=== PATIENT | male | born 1980 | race African-American/Black ===

== ENCOUNTER 2016-12-06 20:38 | Emergency (ER) | payer OTHER ==
[2016-12-06 22:04] LABS: Bilirubin Negative (Negative); Blood, Urine Trace (Negative); Glucose, Urine (Dipstick) Negative (Negative); Ketone, Urine Negative (Negative); Nitrite Negative (Negative); Protein, Urine (Dipstick) Negative (Neg-Trace)
[2016-12-06 22:28] LABS: RBC/HPF None Seen HPF (0-3); Squamous Epithelial 0-3 HPF (0-3); WBC/HPF 0-3 HPF (0-3)
[2016-12-06 22:41] LABS: Hematocrit 35.8 % (42.0-52.0); Lactic Acid - Sepsis 1.4 mmol/L (0.5-2.2); Mean Platelet Volume 7.7 fL (7.4-10.4); Red Blood Cell (RBC) Count 3.38 mill/uL (4.70-6.10); White Blood Cell (WBC) Count 12.5 thou/uL (4.8-10.8)
[2016-12-06 22:48] LABS: ALT (SGPT) 61 U/L (0-55); AST (SGOT) 51 U/L (5-34); Alkaline Phosphatase 60 U/L (40-150); Anion Gap 14 mmol/L (10-20); BUN (Urea Nitrogen) 9 mg/dL (8.9-20.6); Bilirubin, Total 2.4 mg/dL (0.2-1.2); Calc. Creatinine Clearance 0 mL/min (70-130); Calcium 9.9 mg/dL (7.8-10.44); Carbon Dioxide 27 mmol/L (22-29); Chloride 102 mmol/L (98-107); Estimated GFR-MDRD Greater than 90; Globulin 3.3 g/dL (2.4-3.5); Lipase 29 U/L (8-78)
[2016-12-06 22:51] LABS: Troponin I 0.017 ng/mL (< 0.028)
[2016-12-06 23:06] LABS: Anisocytosis SLIGHT = 6-15 cells (100X) (0-5/hpf); Hypochromia SLIGHT = 6-15 cells (100X) (0-5/hpf); Macrocytosis MODERATE=16-30 cells (100X) (0-5/hpf); Neutrophil 44 % (42-75); Nucleated RBC 2 % (0); Polychromasia SLIGHT = 2-3 cells (100X) (0-2/hpf)
--- NOTE | 2016-12-06 23:31 | RAD ---
CHEST TWO VIEWS 12/06/16 No prior films were available for comparison. The heart is normal in size and the lungs are clear. No infiltrate or effusion was seen. There is no sign of pneumonia. The mediastinum was unremarkable. The trachea is midline. IMPRESSION: No acute thoracic findings. POS: HOME
--- NOTE | 2016-12-06 23:39 | ERRECORD ---
[facility] EMERGENCY RECORD HPI COUGH (21:18 DHAM) CHIEF COMPLAINT: Patient presents for evaluation of cough, productive of yellow sputum. HISTORIAN: History provided by patient, History provided by patient's family, Mother, pt with post nasal drip and cough for 48 hours. Has had 2 episodes of cough induced emesis. no fever or body aches. Had a slight headache between 3 and 4 pm but it resolved. LOCATION: Unable to localize symptoms. QUALITY: Unable to describe the quality of the pain. SEVERITY: Current severity of pain rated as 0/10. TIME COURSE: Gradual onset of symptoms, 2, days priror to arrival, There has been no change in the patient's symptoms over time. ASSOCIATED WITH: No associated chest pain, No associated chills, No associated diarrhea, No associated diaphoresis, No associated dyspnea on exertion, No associated fever, No associated hyperventilation, No associated nausea, No associated orthopnea, No associated palpitations, No associated paroxysmal nocturnal dyspnea, No associated stridor, Associated with upper respiratory infection, No associated wheezing, post nasal drip and lots of sniffing. EXACERBATED BY: Patient's condition exacerbated by nothing. RELIEVED BY: Patient's condition relieved by nothing. IMMUNIZATION STATUS: Flu vaccine up to date, Date of immunization: june 2016. ROS (21:25 DHAM) CONSTITUTIONAL: Historian denies chills, denies fever, denies lethargy, denies night sweats. EYES: Historian denies eye pain, denies eye redness, denies eye discharge. ENT: Historian reports rhinorrhea, post nasal drip. CARDIOVASCULAR: Historian denies chest pain, no radiation, Historian denies diaphoresis, denies palpitations. RESPIRATORY: Historian reports cough, denies shortness of breath, reports sputum. yellow, Historian denies stridor, denies wheezing. GI: Historian denies abdominal pain, denies constipation, denies diarrhea, denies nausea, reports vomiting. vomiting was cough induced. GENITOURINARY MALE: Historian denies dysuria, denies urinary frequency, denies urinary urgency. MUSCULOSKELETAL: Historian denies arthralgias, denies back pain, denies fall, denies injury, denies myalgias. SKIN: Historian denies rash. NEUROLOGIC: Historian denies confusion, denies dizziness, reports headache. ENDOCRINE: Historian denies polydipsia, denies polyuria. HEMO/LYMPHATIC: SS disease. ALLERGIC/IMMUNOLOGIC: Historian denies eczema, denies frequent &a-1R&a+25V*p+0X*b6322T*c202B*c15G*c2P*p-0X&a-25V&a+1R Name: Jose Raul Correa : 1980 M35 MedRec: [id number] AcctNum: [id number] Prepared: MonDec 07, 2016 08:57 by Interface Page 1 of 4 pMD [facility] EMERGENCY RECORD infections, denies hives. PAST MEDICAL HISTORY MEDICAL HISTORY: Notes: SICKLE CELL DISEASE, Flu vaccine up to date, Date of immunization: 2015, Tetanus immunization up to date, Date of immunization: < 5 YEARS, Pneumococcal vaccine up to date, Date of immunization: 2015, Past medical history includes cardiac history, MURMUR. (20:53 AADK) MALE SURGICAL HISTORY: LITHOTRIPSY, Surgical history of orthopedic surgery, LEFT KNEE. (20:53 AADK) PSYCHIATRIC HISTORY: No previous psychiatric history. (20:53 AADK) SOCIAL HISTORY: Patient denies alcohol use, Patient denies drug use, Patient has no smoking history, Lives at home, with family. (20:53 AADK) FAMILY HISTORY: Notes: SICKLE CELL TRAIT- MATERNAL. (20:53 AADK) NOTES: I have reviewed the nursing documentation regarding PMHX, social hx, family hx, and surgical history as well as vitals and triage notes and agree. (21:31 DHAM) KNOWN ALLERGIES ORANGES: Reaction: Rash, Severity: Severe, Source: Patient Toradol: Reaction: Rash, Severity: Severe, Source: Patient CURRENT MEDICATIONS Pen-Vee K: TABLET : Strength - 500 mg : ORAL Patient Dose: 500 mg Oral once a day. (20:47 AADK) folic acid: TABLET : Strength - 1 mg : ORAL Patient Dose: Oral once a day.PT UNSURE OF DOSAGE. (20:48 AADK) Hydrea: CAPSULE : Strength - 500 mg : ORAL Patient Dose: 1000 mg Oral once a day. (20:48 AADK) multivitamin: TABLET : ORAL Patient Dose: 1 tab(s) Oral once a day. (20:49 AADK) VITAL SIGNS VITAL SIGNS: BP: 130/81, Pulse: 75, Resp: 20, Temp: 99.3, Pain: 7, O2 sat: 95 on RA, Time: 12/06/2016 20:45. (20:45 AADK) BP: 118/86, Pulse: 77, Resp: 23 (Non-Labored), O2 sat: 98 on Room Air, Time: 12/06/2016 21:15. (21:15 AADK) BP: 118/82, Pulse: 75, Resp: 22 (Non-Labored), O2 sat: 97 on Room Air, Time: 12/06/2016 22:00. (22:00 AADK) Pulse: 74, Resp: 20 (Non-Labored), Pain: 2, O2 sat: 99 on Room Air, Time: 12/06/2016 22:40. (22:40 AADK) BP: 127/80, Pulse: 71, Resp: 17 (Non-Labored), Pain: 2, O2 sat: 100 on &a-1R&a+25V*p+0X*[id number]*c202B*c15G*c2P*p-0X&a-25V&a+1R Name: Jose Raul Correa : 1980 M35 MedRec: [id number] AcctNum: [id number] Prepared: MonDec 07, 2016 08:57 by Interface Page 2 of 4 pMD [facility] EMERGENCY RECORD Room Air, Time: 12/06/2016 23:00. (23:00 AADK) Temp: 98.5, Time: 12/06/2016 23:18. (23:18 AADK) PHYSICAL EXAM (21:30 DHAM) CONSTITUTIONAL: Vital signs reviewed, Patient afebrile, Pulse normal, Blood pressure normal, Respiratory rate normal, Patient appears non toxic, Patient appears pain free, Patient alert and oriented to person, place and time. HEAD: Head exam normal, Head exam included findings of head atraumatic. EYES: Eye exam included findings of eyelids normal to inspection, Pupils equally round and reactive to light, Extraocular muscles intact, Conjunctiva normal. ENT: Ear exam normal, external ear normal, tympanic membranes normal, no drainage, Nose exam normal, no nasal deformity, Pharynx exam normal, Uvula exam normal, Tonsil exam normal, teeth normal, slight nasal congestion and rhinorrhea with occas sniffles. several tonsillar calcifications noted. no sore throat. NECK: Neck exam normal, Neck exam included findings of normal range of motion, Thyroid normal, no jugular venous distention, no cervical adenopathy. RESPIRATORY CHEST: Breath sounds clear, No wheezing, No rales, No rhonchi. CARDIOVASCULAR: Cardiovascular exam included findings of heart rate regular rate and rhythm, Heart sounds normal, Point of maximal impulse normal. ABDOMEN MALE: Abdominal exam included findings of abdomen nontender, Bowel sounds normal, Liver normal, Spleen normal, no distension, no mass, no peritoneal signs. UPPER EXTREMITY: Upper extremity exam normal, Radial pulse normal. LOWER EXTREMITY: Lower extremity exam normal, Lower extremity exam included findings of inspection normal, Range of motion normal. NEURO: Arsh coma scale 15, Neuro exam findings include patient oriented to person, place and time, Speech normal, Gait normal, Cranial nerves intact. SKIN: Skin exam included findings of skin warm, dry, and normal in color, no rash. PSYCHIATRIC: Psychiatric exam included findings of patient oriented to person place and time, Normal affect, Judgment normal, Insight normal. EKG INTERPRETATION (22:09 [facility]) 12 LEAD EKG INTERPRETATION: 12 lead EKG shows normal sinus rhythm, Rate (beats per minute): 69, with no ectopics, No previous EKG available for comparison, Conduction normal, ST segments normal, T waves normal, [place] normal, Other findings include:, left ventricular hypertrophy. RADIOLOGYINTERPRETATION (21:43 D[facility]) &a-1R&a+25V*p+0X*[id number]*c202B*c15G*c2P*p-0X&a-25V&a+1R Name: Jose Raul Correa : 1980 M35 MedRec: [id number] AcctNum: [id number] Prepared: MonDec 07, 2016 08:57 by Interface Page 3 of 4 pMD [facility] EMERGENCY RECORD CHEST: Chest films negative, no infiltrates, no pneumothorax, no hemothorax, no masses, no cardiomegaly, no congestive heart failure, no effusion, no free air. MEDICATION ADMINISTRATION SUMMARY Drug Name: *sodium chloride 0.9 % intravenous, Dose Ordered: 1 L, Route: IV Fluid Infusion, Status: Canceled, Time: 23:00 12/06/2016, *Additional information available in notes, Detailed record available in Medication Service section. DOCTOR NOTES TEXT: mother now says at the time of discharge that he has thrown up 8-10 times since 5 days ago. She tells me that he has short term memory loss and had a stroke in the past. She did not advise me of the history discrepancy earlier in the visit. she tells me that he can't keep anything on his stomach. pt denies nausea. We will start an IV and obtain labs and cardiac eval as I am having trouble getting a firm history. (21:50 DHAM) Labs discussed with mother. I see no signs of dehydration and he finished about 480ml water over the last hour and denies nausea. he is sniffing and spitting his post nasal drip. This appears to be a viral syndrome. see dci. (23:09 DHAM) PROBLEM LIST No recorded problems DIAGNOSIS (23:11 DHAM) FINAL: PRIMARY: viral upper respiratory infection. PRESCRIPTION No recorded prescriptions DISPOSITION PATIENT: Disposition Type: Discharge, Disposition: *Discharge Home. (23:11 DHAM) Patient left the department. (23:21 AADK) Kelly: AADK=ARRON Kendall, Rukhsana INTERIANO=MD January, Matthieu &a-1R&a+25V*p+0X*[id number]*c202B*c15G*c2P*p-0X&a-25V&a+1R Name: Jose Raul Correa : 1980 M35 MedRec: [id number] AcctNum: [id number] Prepared: MonDec 07, 2016 08:57 by Interface Page 4 of 4 pMD MTDD
--- NOTE | 2016-12-06 23:42 | PICIS ---
[facility] EMERGENCY RECORD TRIAGE (MonDec 06, 2016 20:45 AADK) PATIENT: NAME: Jose Raul Correa, AGE: 35, GENDER: male, : Mon1980, TIME OF GREET: MonDec 06, 2016 20:40, PREFERRED LANGUAGE: Palauan, ETHNICITY: Not or , ECODE BILLING MAP: [facility], SSN: [id number], Zip Code: [address], KG WEIGHT: 72.57 (est.), , , PERSON ID: [id number], PCP: DR DEVAN MCKEON. (MonDec 06, 2016 20:45 AADK) PHONE: , PAYMENT: [facility] Medicaid. (20:48) COMPLAINT: N/V, "FUNNY FEELING IN CHEST FOR A FEW DAYS". (MonDec 06, 2016 20:45 AADK) ADMISSION: URGENCY: 3 Urgent, ADMISSION SOURCE: Home, TRANSPORT: CAR, BED: ER -01. (MonDec 06, 2016 20:45 AADK) PAIN: Patient complains of pain described as, burning, on a scale 0-10 patient rates pain as 7, Location MIDDLE OF CHEST X2 DAYS, Pain is constant. (20:53 AADK) SIRS SCORING: Heart Rate 55-109 (0), Temp range 96.8-101.1 (0), respiratory rate 12-24 (0), Mental Status altered: no (0), Total SIRS Score 0, Infection or Suspected Infection: No. (20:50 AADK) TRIAGE SCREENING: Patient denies suicidal ideation, Patient denies presence of domestic violence. (20:53 AADK) PROVIDERS: TRIAGE NURSE: Rukhsana Solano RN. (MonDec 06, 2016 20:45 AADK) KNOWN ALLERGIES ORANGES: Reaction: Rash, Severity: Severe, Source: Patient Toradol: Reaction: Rash, Severity: Severe, Source: Patient CURRENT MEDICATIONS Pen-Vee K: TABLET : Strength - 500 mg : ORAL Patient Dose: 500 mg Oral once a day. (20:47 AADK) folic acid: TABLET : Strength - 1 mg : ORAL Patient Dose: Oral once a day.PT UNSURE OF DOSAGE. (20:48 AADK) Hydrea: CAPSULE : Strength - 500 mg : ORAL Patient Dose: 1000 mg Oral once a day. (20:48 AADK) multivitamin: TABLET : ORAL Patient Dose: 1 tab(s) Oral once a day. (20:49 AADK) VITAL SIGNS VITAL SIGNS: BP: 130/81, Pulse: 75, Resp: 20, Temp: 99.3, Pain: 7, O2 sat: 95 on RA, Time: 12/06/2016 20:45. (20:45 AADK) BP: 118/86, Pulse: 77, Resp: 23 (Non-Labored), O2 sat: 98 on Room Air, Time: 12/06/2016 21:15. (21:15 AADK) BP: 118/82, Pulse: 75, Resp: 22 (Non-Labored), O2 sat: 97 on Room Air, &a-1R&a+25V*p+0X*a8294L*c202B*c15G*c2P*p-0X&a-25V&a+1R Name: Jose Raul Correa : 1980 M35 MedRec: [id number] AcctNum: [id number] Prepared: MonDec 07, 2016 09:03 by Interface Page 1 of 12 pMD [facility] EMERGENCY RECORD Time: 12/06/2016 22:00. (22:00 AADK) Pulse: 74, Resp: 20 (Non-Labored), Pain: 2, O2 sat: 99 on Room Air, Time: 12/06/2016 22:40. (22:40 AADK) BP: 127/80, Pulse: 71, Resp: 17 (Non-Labored), Pain: 2, O2 sat: 100 on Room Air, Time: 12/06/2016 23:00. (23:00 AADK) Temp: 98.5, Time: 12/06/2016 23:18. (23:18 AADK) NURSING ASSESSMENT: RESPIRATORY /CHEST (20:45 AADK) CONSTITUTIONAL: Patient arrives ambulatory, Gait steady, History obtained from patient, Patient appears comfortable, Patient cooperative, Patient alert, Oriented to person, place and time, Skin warm, Skin dry, Skin normal in color, Mucous membranes pink, Mucous membranes moist, Patient is well-groomed, Patient complains of N/V, "FUNNY FEELING IN CHEST FOR A FEW DAYS", PT PRESENTS TO ER WITH C/O N/V AND "FUNNY FEELING IN CHEST FOR A FEW DAYS." HAVING PRODUCTIVE COUGH WITH YELLOW/GREEN SPUTUM. DENIES FEVER, CHILLS, SORE THROAT, RUNNY NOSE OR BODY ACHES. REGARDING "FUNNY FEELING IN CHEST FOR A FEW DAYS" PT STATES HE IS UNABLE TO DESCRIBE IT. WHEN ASKED ABOUT PAIN, PT STATES SOME IN MIDDLE OF CHEST, DESCRIBES "BURNING" AND RATES 7/10, CONSTANT. STATES THIS STARTED PRIOR TO N/V. LUNGS CLEAR EXCEPT DIMINISHED POSTERIOR UPPER LOBES. NO COUGH NOTED AT THIS TIME. RESPIRATORY/CHEST: Lungs auscultated, Breath sounds diminished, to the left upper lobe, to the right upper lobe, POSTERIOR ONLY, Respiratory assessment findings include respiratory effort easy, Respirations regular, Conversing normally, Neck and chest exam findings include trachea midline, Chest expansion equal, Chest movement symmetrical, no signs of distress, no retractions noted, no cyanosis, Associated with cough, productive of, white sputum, YELLOW-GREEN REPORTED BY PT., no associated fever, Notes: A/R PULSE EQUAL AND REGULAR, MURMUR DETECTED. PT DID REPORT HX OF MURMUR. ENT: Nasal assessment findings include nose normal to inspection, Mucous membranes pink, and moist, Able to swallow, Speech normal. SAFETY: Side rails up, Cart/Stretcher in lowest position, Family at bedside, Call light within reach, Hospital ID band on, Patient in view of the nursing station. VITAL SIGNS: BP: 130, / 81, Pulse: 75, Resp: 20, Temp: 99.3, Pain: 7, O2 sat: 95, on: RA, Time: 2049. NURSING PROCEDURE: RESPIRATORY DIRECTOR PATIENT IDENTIFIER: Patient actively involved in identification process, Patient's identity verified by patient stating name, Patient's identity verified by patient stating date. (20:50 AADK) RESPIRATORY DIRECTOR: Cardiac monitoring indicated for "FUNNY FEELING IN CHEST", Patient placed on playground monitor, Heart rate: 70'S, showing normal sinus rhythm, without ectopy, Strip posted on chart, Patient placed on non-invasive blood pressure &a-1R&a+25V*p+0X*f2190Q*c202B*c15G*c2P*p-0X&a-25V&a+1R Name: Jose Raul Correa : 1980 M35 MedRec: [id number] AcctNum: [id number] Prepared: MonDec 07, 2016 09:03 by Interface Page 2 of 12 pMD [facility] EMERGENCY RECORD monitor, with disposable blood pressure cuff applied, Patient placed on continuous pulse oximetry, Adult/pediatric oxisensor applied, Oxygen saturation 95%. (20:50 AADK) FOLLOW-UP: After procedure, alarms set and on, After procedure, patient tolerating monitoring. (21:00 AADK) SAFETY: Side rails up, Cart/Stretcher in lowest position, Family at bedside, Call light within reach, Hospital ID band on, Patient in view of the nursing station. (21:00 AADK) NURSING PROCEDURE: DISCHARGE NOTE (23:18 AADK) DISCHARGE: Patient discharged to home, ambulating without assistance, family driving, accompanied by parent, Summary of Care printed/ provided, Patient requested and was provided an electronic copy of Discharge Instructions, Transition record given to patient, Discharge instructions given to patient, Discharge instructions given to mother, Simple or moderate discharge teaching performed, Above person(s) verbalized understanding of discharge instructions and follow-up care. BELONGINGS: Belongings remain with patient, Valuables remain with patient. VITAL SIGNS: Temp: 98.5, Time: 2317. NURSING PROCEDURE: EKG CHART (21:56 AADK) PATIENT IDENTIFIER: Patient actively involved in identification process, Patient's identity verified by patient stating name, Patient's identity verified by patient stating date. EKG: EKG indicated for "FUNNY FEELING IN CHEST", 12 lead EKG performed on the left chest, done by Shanice SOLANO RN, first EKG. FOLLOW-UP: After procedure, EKG for interpretation given to Dr. NAIDU. NURSING PROCEDURE: INTAKE AND OUTPUT (22:57 AADK) INTAKE AND OUTPUT: Oral intake(ml): 480, Total Intake (ml): 480ml, Total Output (ml): 0ml, Grand Total: Intake is greater than output by 480mls, Notes: VOID X1. NURSING PROCEDURE: IV (22:00 AADK) PATIENT IDENITIFIER: Patient actively involved in identification process, Patient's identity verified by patient stating name, Patient's identity verified by patient stating date. IV SITE 1: IV therapy indicated for hydration, Labs drawn at time of placement, labeled in the presence of the patient and sent to lab, Notes: LABS DRAWN BUT IV SITE BLEW WHEN ATTEMPTED TO FLUSH WITH NS. PT DIFFICULT STICK, HAD TO USE [address] NAIDU OF LABS DRAWN BUT IV BLEW, HE SAID OK TO WAIT ON IVF UNTIL LABS ARE RESULTED. DR NAIDU GAVE PT ICE WATER TO DRINK AT THIS TIME. NURSING PROCEDURE: NURSE NOTES NURSES NOTES: Patient is improving, Patient in no apparent distress, Patient is awaiting results, Notes: PT TOLERATING ICE &a-1R&a+25V*p+0X*b6608Q*c202B*c15G*c2P*p-0X&a-25V&a+1R Name: Jose Raul Correa : 1980 M35 MedRec: [id number] AcctNum: [id number] Prepared: MonDec 07, 2016 09:03 by Interface Page 3 of 12 pMD [facility] EMERGENCY RECORD WATER WITHOUT C/O N/V. PT CONTINUES TO SPIT PHLEGM IN EMESIS BAG. DENIES ANY PAIN TO CHEST, STATES HE JUST HAS A "SLIGHT" PEREZ. (22:40 AADK) Patient is improving, Patient in no apparent distress, Patient is awaiting results, Notes: NOTIFIED DR NAIDU OF BUN/CREAT LEVELS. HE SAID TO HOLD THE IVF. ALSO INFORMED HIM WE ARE STILL WAITING ON THE CARDIAC LABS. (22:56 AADK) NURSING PROCEDURE: PO CHALLENGE PATIENT IDENTIFIER: Patient actively involved in identification process, Patient's identity verified by patient stating name, Patient's identity verified by patient stating date. (22:25 AADK) PO CHALLENGE: Oral fluid challenge indicated for documenting oral intake prior to discharge, Oral challenge performed, patient given water, amount (mL) 480, Notes: GIVEN TO PT BY DR NAIDU. (22:25 AADK) FOLLOW-UP: After procedure, patient tolerated oral challenge, Notes: PT DRANK ALL 480 ML OF ICE WATER WITH C/O OF N/V. (22:58 AADK) NURSING PROCEDURE: TRANSPORT TO [facility] PATIENT IDENTIFIER: Patient actively involved in identification process, Patient's identity verified by patient stating name, Patient's identity verified by patient stating date. (21:33 AADK) TRANSPORT TO TESTS: Transport indicated to facilitate diagnosis, Patient transported to x-ray, via wheelchair, Accompanied by x-ray greenhouse technician. (21:34 AADK) FOLLOW-UP: After procedure, patient returned to emergency department. (21:41 AADK) SAFETY: Side rails up, Cart/Stretcher in lowest position, Family at bedside, Call light within reach, Hospital ID band on, Patient in view of the nursing station. (21:41 AADK) ORDER DETAILS Order Name: RESPIRATORY DIRECTOR ED, Status: Done, Time: 21:50 12/06/2016, User: SARA, - Ordered for: MD Naidu Darren, - Entered by: MD Naidu Darren - Tue Dec 06, 2016 21:48, - Quantity: 1, Order Name: Cardiac Profile w/CKMB & Troponin - I, Status: Active, Time: 21:48 12/06/2016, User: JAYDON, - Ordered for: MD Naidu Darren, - Entered by: MD Naidu Darren - Tue Dec 06, 2016 21:48, - Quantity: 1, Order Name: CBC with Differential, Status: Active, Time: 21:48 12/06/2016, User: JAYDON, - Ordered for: MD Naidu Darren, &a-1R&a+25V*p+0X*u6810N*c202B*c15G*c2P*p-0X&a-25V&a+1R Name: Sunny Jose Raul Ori : 1980 M35 MedRec: [id number] AcctNum: [id number] Prepared: MonDec 07, 2016 09:03 by Interface Page 4 of 12 pMD [facility] EMERGENCY RECORD - Entered by: MD Naidu Darren - Tue Dec 06, 2016 21:48, - Quantity: 1, Order Name: Comprehensive Metabolic Panel, Status: Active, Time: 21:48 12/06/2016, User: JAYDON, - Ordered for: MD Naidu Darren, - Entered by: MD Naidu Darren - Tue Dec 06, 2016 21:48, - Quantity: 1, Order Name: EKG 12 Lead in Emergency Room, Status: Active, Time: 21:48 12/06/2016, User: JAYDON, - Ordered for: MD Naidu Darren, - Entered by: MD Naidu Darren - Tue Dec 06, 2016 21:48, - Quantity: 1, Order Name: Influenza A&B Ag Screen, Status: Active, Time: 21:16 12/06/2016, User: JAYDON, - Ordered for: MD Naidu Darren, - Entered by: MD Naidu Darren - Tue Dec 06, 2016 21:16, - Quantity: 1, Order Name: Lactic Acid with repeat, Status: Active, Time: 21:48 12/06/2016, User: JAYDON, - Ordered for: MD Naidu Darren, - Entered by: MD Naidu Darren - Tue Dec 06, 2016 21:48, - Quantity: 1, Order Name: Lipase, Status: Active, Time: 21:48 12/06/2016, User: JAYDON, - Ordered for: MD Naidu Darren, - Entered by: MD Naidu Darren - Tue Dec 06, 2016 21:48, - Quantity: 1, Order Name: SALINE LOCK, Status: Canceled, Time: 23:09 12/06/2016, User: DEMIK, - Ordered for: MD Naidu Darren, - Entered by: MD Naidu Darren - Tue Dec 06, 2016 21:48, - Reason for Cancel: UNABLE TO OBTAIN IV ACCESS, - Quantity: 1, Order Name: Urinalysis with Microscopic, Status: Active, Time: 21:48 12/06/2016, User: JAYDON, - Ordered for: MD Naidu Darren, - Entered by: MD Naidu Darren - Tue Dec 06, 2016 21:48, - Quantity: 1, Order Name: XR Chest Pa & Lat STANDARD, Status: Active, Time: 21:17 12/06/2016, User: JAYDON, - Ordered for: MD Naidu Darren, - Entered by: MD Naidu Darren - Tue Dec 06, 2016 21:17, - Quantity: 1. MEDICATION ADMINISTRATION SUMMARY Drug Name: *sodium chloride 0.9 % intravenous, Dose Ordered: 1 L, Route: IV Fluid Infusion, Status: Canceled, Time: 23:00 12/06/2016, *Additional information available in notes, Detailed record available in Medication Service section. &a-1R&a+25V*p+0X*u3433H*c202B*c15G*c2P*p-0X&a-25V&a+1R Name: Jose Raul Correa : 1980 M35 MedRec: [id number] AcctNum: [id number] Prepared: MonDec 07, 2016 09:03 by Interface Page 5 of 12 pMD [facility] EMERGENCY RECORD MEDICATION SERVICE (23:00 DHAM Updated: 23:21 AADK) (CANCELED) sodium chloride 0.9 % intravenous: Order: sodium chloride 0.9 % intravenous (0.9 % sodium chloride) - Dose: 1 L : IV Fluid Infusion Schedule: Now Notes: (Bolus) Ordered by: Matthieu Naidu MD Entered by: Matthieu Naidu MD [facility] Dec 06, 2016 21:49 , Acknowledged by: Rukshana Solano RN [facility] Dec 06, 2016 22:05 Canceled by: Rukhsana Solano RN. [facility] Dec 06, 2016 23:00 Cancel reason: Change in medication plan. HPI COUGH (21:18 DHAM) CHIEF COMPLAINT: Patient presents for evaluation of cough, productive of yellow sputum. HISTORIAN: History provided by patient, History provided by patient's family, Mother, pt with post nasal drip and cough for 48 hours. Has had 2 episodes of cough induced emesis. no fever or body aches. Had a slight headache between 3 and 4 pm but it resolved. LOCATION: Unable to localize symptoms. QUALITY: Unable to describe the quality of the pain. SEVERITY: Current severity of pain rated as 0/10. TIME COURSE: Gradual onset of symptoms, 2, days priror to arrival, There has been no change in the patient's symptoms over time. ASSOCIATED WITH: No associated chest pain, No associated chills, No associated diarrhea, No associated diaphoresis, No associated dyspnea on exertion, No associated fever, No associated hyperventilation, No associated nausea, No associated orthopnea, No associated palpitations, No associated paroxysmal nocturnal dyspnea, No associated stridor, Associated with upper respiratory infection, No associated wheezing, post nasal drip and lots of sniffing. EXACERBATED BY: Patient's condition exacerbated by nothing. RELIEVED BY: Patient's condition relieved by nothing. IMMUNIZATION STATUS: Flu vaccine up to date, Date of immunization: june 2016. ROS (21:25 DHAM) CONSTITUTIONAL: Historian denies chills, denies fever, denies lethargy, denies night sweats. EYES: Historian denies eye pain, denies eye redness, denies eye discharge. ENT: Historian reports rhinorrhea, post nasal drip. CARDIOVASCULAR: Historian denies chest pain, no radiation, Historian denies diaphoresis, denies palpitations. RESPIRATORY: Historian reports cough, denies shortness of breath, reports sputum. yellow, Historian denies stridor, denies wheezing. &a-1R&a+25V*p+0X*d6760Q*c202B*c15G*c2P*p-0X&a-25V&a+1R Name: Jose Raul Correa : 1980 M35 MedRec: [id number] AcctNum: [id number] Prepared: MonDec 07, 2016 09:03 by Interface Page 6 of 12 pMD [facility] EMERGENCY RECORD GI: Historian denies abdominal pain, denies constipation, denies diarrhea, denies nausea, reports vomiting. vomiting was cough induced. GENITOURINARY MALE: Historian denies dysuria, denies urinary frequency, denies urinary urgency. MUSCULOSKELETAL: Historian denies arthralgias, denies back pain, denies fall, denies injury, denies myalgias. SKIN: Historian denies rash. NEUROLOGIC: Historian denies confusion, denies dizziness, reports headache. ENDOCRINE: Historian denies polydipsia, denies polyuria. HEMO/LYMPHATIC: SS disease. ALLERGIC/IMMUNOLOGIC: Historian denies eczema, denies frequent infections, denies hives. PAST MEDICAL HISTORY MEDICAL HISTORY: Notes: SICKLE CELL DISEASE, Flu vaccine up to date, Date of immunization: 2015, Tetanus immunization up to date, Date of immunization: < 5 YEARS, Pneumococcal vaccine up to date, Date of immunization: 2016, Past medical history includes cardiac history, MURMUR. (20:53 AADK) MALE SURGICAL HISTORY: LITHOTRIPSY, Surgical history of orthopedic surgery, LEFT KNEE. (20:53 AADK) PSYCHIATRIC HISTORY: No previous psychiatric history. (20:53 AADK) SOCIAL HISTORY: Patient denies alcohol use, Patient denies drug use, Patient has no smoking history, Lives at home, with family. (20:53 AADK) FAMILY HISTORY: Notes: SICKLE CELL TRAIT- MATERNAL. (20:53 AADK) NOTES: I have reviewed the nursing documentation regarding PMHX, social hx, family hx, and surgical history as well as vitals and triage notes and agree. (21:31 DHAM) PHYSICAL EXAM (21:30 DHAM) CONSTITUTIONAL: Vital signs reviewed, Patient afebrile, Pulse normal, Blood pressure normal, Respiratory rate normal, Patient appears non toxic, Patient appears pain free, Patient alert and oriented to person, place and time. HEAD: Head exam normal, Head exam included findings of head atraumatic. EYES: Eye exam included findings of eyelids normal to inspection, Pupils equally round and reactive to light, Extraocular muscles intact, Conjunctiva normal. ENT: Ear exam normal, external ear normal, tympanic membranes normal, no drainage, Nose exam normal, no nasal deformity, Pharynx exam normal, Uvula exam normal, Tonsil exam normal, teeth normal, slight nasal congestion and rhinorrhea with occas sniffles. several tonsillar calcifications noted. no sore throat. NECK: Neck exam normal, Neck exam included findings of normal &a-1R&a+25V*p+0X*z2572W*c202B*c15G*c2P*p-0X&a-25V&a+1R Name: Jose Raul Correa : 1980 M35 MedRec: [id number] AcctNum: [id number] Prepared: MonDec 07, 2016 09:03 by Interface Page 7 of 12 pMD [facility] EMERGENCY RECORD range of motion, Thyroid normal, no jugular venous distention, no cervical adenopathy. RESPIRATORY CHEST: Breath sounds clear, No wheezing, No rales, No rhonchi. CARDIOVASCULAR: Cardiovascular exam included findings of heart rate regular rate and rhythm, Heart sounds normal, Point of maximal impulse normal. ABDOMEN MALE: Abdominal exam included findings of abdomen nontender, Bowel sounds normal, Liver normal, Spleen normal, no distension, no mass, no peritoneal signs. UPPER EXTREMITY: Upper extremity exam normal, Radial pulse normal. LOWER EXTREMITY: Lower extremity exam normal, Lower extremity exam included findings of inspection normal, Range of motion normal. NEURO: Arsh coma scale 15, Neuro exam findings include patient oriented to person, place and time, Speech normal, Gait normal, Cranial nerves intact. SKIN: Skin exam included findings of skin warm, dry, and normal in color, no rash. PSYCHIATRIC: Psychiatric exam included findings of patient oriented to person place and time, Normal affect, Judgment normal, Insight normal. EVENTS TRANSFER: Triage to Emergency Emergency Room -. (MonDec 06, 2016 20:45 AADK) Removed from Emergency Emergency Room -. (23:21 AADK) RADIOLOGYINTERPRETATION (21:43 DHAM) CHEST: Chest films negative, no infiltrates, no pneumothorax, no hemothorax, no masses, no cardiomegaly, no congestive heart failure, no effusion, no free air. EKG INTERPRETATION (22:09 DHAM) 12 LEAD EKG INTERPRETATION: 12 lead EKG shows normal sinus rhythm, Rate (beats per minute): 69, with no ectopics, No previous EKG available for comparison, Conduction normal, ST segments normal, T waves normal, Vinson normal, Other findings include:, left ventricular hypertrophy. O2SAT INTERPRETATION (21:31 DHAM) O2SAT: Single pulse oximetry, Oxygen saturation 96%, on room air, Oxygen saturation interpretation: Normal, No intervention required. DOCTOR NOTES TEXT: mother now says at the time of discharge that he has thrown up 8-10 times since 5 days ago. She tells me that he has short term memory loss and had a stroke in the past. She did not advise me of the history discrepancy earlier in the visit. she tells me that he can't keep anything on his stomach. pt denies nausea. We will start &a-1R&a+25V*p+0X*q3950C*c202B*c15G*c2P*p-0X&a-25V&a+1R Name: Jose Raul Correa : 1980 M35 MedRec: [id number] AcctNum: [id number] Prepared: MonDec 07, 2016 09:03 by Interface Page 8 of 12 pMD [facility] EMERGENCY RECORD an IV and obtain labs and cardiac eval as I am having trouble getting a firm history. (21:50 DHAM) Labs discussed with mother. I see no signs of dehydration and he finished about 480ml water over the last hour and denies nausea. he is sniffing and spitting his post nasal drip. This appears to be a viral syndrome. see dci. (23:09 DHAM) PROBLEM LIST No recorded problems DIAGNOSIS (23:11 DHAM) FINAL: PRIMARY: viral upper respiratory infection. DISPOSITION PATIENT: Disposition Type: Discharge, Disposition: *Discharge Home. (23:11 DHAM) Patient left the department. (23:21 AADK) INSTRUCTION (23:11 DHAM) DISCHARGE: UPPER RESP INFECTION NO ANTIBIOTIC TREATMENT ADULT. SPECIAL: Sudafed 12 hour each am and Afrin 12 nasal spray at night for congestion Aleve 2 twice a day for aches and pains drink plenty of liquids such as Gatorade or powerade. Return for fever that last over 2 days, shortness of breath, no improvement over next 7 days or any other concerns. PRESCRIPTION No recorded prescriptions IMAGING *EKG: Image captured from scanner. (22:26 AADK) *SUPPLY CHARGE SHEET: Image captured from scanner. (23:19 AADK) MONITOR STRIPS: Image captured from scanner. (23:19 AADK) *DISCHARGE INSTRUCTIONS RECEIPT: Image captured from scanner. (23:19 AADK) ADMIN (MonDec 07, 2016 08:56 DHAM) DIGITAL SIGNATURE: MD Naidu Darren. RESULTS LABORATORY: Urinalysis with Microscopic Collection DT: MonDec 06, 2016 21:59, Color Yellow , Range (Yellow), Clarity Clear , Range (Clear), Specific [place], Urine 1.015 , Range (1.005-1.030), pH, Urine 6.5 , Range (5.0-9.0), Leukocyte Negative , Range (Negative), Nitrite Negative , Range (Negative), Protein, Urine (Dipstick) Negative mg/dL, Range (Neg-Trace), &a-1R&a+25V*p+0X*o2767B*c202B*c15G*c2P*p-0X&a-25V&a+1R Name: Jose Raul Correa : 1980 M35 MedRec: [id number] AcctNum: [id number] Prepared: MonDec 07, 2016 09:03 by Interface Page 9 of 12 pMD [facility] EMERGENCY RECORD Glucose, Urine (Dipstick) Negative mg/dL, Range (Negative), Ketone, Urine Negative mg/dL, Range (Negative), Urobilinogen 1.0 mg/dL, Range (0.2-1.0), Bilirubin Negative , Range (Negative), *Blood, Urine Trace - H , Range (Negative). (22:26 [facility]) MICROBIOLOGY: Influenza A&B Ag Screen: [id number] Collection DT: MonDec 06, 2016 21:25, See comment below , @ ER ROOM#: ER-[address] NAIDU Source: Nasal swab Spec, Desc: , Influenza A Antigen: NEGATIVE for the , presence of , INFLUENZA A Antigen , Influenza B Antigen: NEGATIVE for the , presence of , INFLUENZA B Antigen , The rapid Flu A&B test can distinguish between influenza A , Influenza A&B Ag Screen See comment below , and B viruses, but it does not differentiate influenza , Influenza A&B Ag Screen See comment below , subtypes. , Influenza A&B Ag Screen See comment below , Influenza A&B Ag Screen See comment below , Influenza A&B Ag Screen See comment below , Influenza A&B Ag Screen See comment below , Influenza A&B Ag Screen See comment below , with the 2008 H1N1 influenza virus have not been , Influenza A&B Ag Screen See comment below , established. For example: this test cannot distinguish , Influenza A&B Ag Screen See comment below , influenza infections caused by novel H1N1 influenza A , Influenza A&B Ag Screen See comment below , viruses versus seasonal influenza A viruses. , Influenza A&B Ag Screen See comment below , , Influenza A&B Ag Screen See comment below , A negative result does not exclude influenza virus , Influenza A&B Ag Screen See comment below , infection; therefore, if more conclusive testing is desired, , Influenza A&B Ag Screen See comment below , follow up confirmatory testing is warranted., Influenza A&B Ag Screen See comment below . (22:26 [facility]) LABORATORY: Cardiac Profile w/CKMB & TropI Collection DT: MonDec 06, 2016 22:26, CKMB 0.5 ng/mL, Range (0-6.6), Troponin I 0.017 ng/mL, Range (< 0.028), Reference Range , 0.00 - 0.028 ng/mL Negative 0.029 - 0.29 ng/mL , Indeterminate Greater or Equal to 0.3 ng/mL Strongly suggests IN &a-1R&a+25V*p+0X*g6700B*c202B*c15G*c2P*p-0X&a-25V&a+1R Name: Jose Raul Correa : 1980 M35 MedRec: [id number] AcctNum: [id number] Prepared: MonDec 07, 2016 09:03 by Interface Page 10 of 12 pMD [facility] EMERGENCY RECORD , . (23:09 [facility]) Lipase Collection DT: MonDec 06, 2016 22:26, Lipase 29 U/L, Range (8-78). (23:09 [facility]) Comprehensive Metabolic Panel Collection DT: MonDec 06, 2016 22:26, Sodium 139 mmol/L, Range (136-145), Potassium 4.0 mmol/L, Range (3.5-5.1), Chloride 102 mmol/L, Range (98-107), Carbon Dioxide 27 mmol/L, Range (22-29), Anion Gap 14 mmol/L, Range (10-20), BUN (Urea Nitrogen) 9 mg/dL, Range (8.9-20.6), Creatinine 0.92 mg/dL, Range (0.7-1.3), Estimated GFR-MDRD Greater than 90 , Reference Range for Estimated GFR: Greater than 90, mL/min/1.73 m2 NOTE: The MDRD equation has not been validated for use, with the elderly (over 70 years of age), women, patients with, serious comorbid condition or persons with extremes of body size, muscle, mass, or nutritional status. , Glucose 105 mg/dL, Range (70-105), Calcium 9.9 mg/dL, Range (7.8-10.44), *Bilirubin, Total 2.4 - H mg/dL, Range (0.2-1.2), Protein, Total 8.0 g/dL, Range (6.0-8.3), NOTE: Plasma values are generally 0.3 to 0.5 g/dL higher than serum values, due to the presence of fibrinogen. , Albumin 4.7 g/dL, Range (3.5-5.0), Globulin 3.3 g/dL, Range (2.4-3.5), Alb/Glob Ratio 1.4 g/dL, Range (1.2-2.2), Alkaline Phosphatase 60 U/L, Range (40-150), *AST (SGOT) 51 - H U/L, Range (5-34), *ALT (SGPT) 61 - H U/L, Range (0-55). (23:09 [facility]) Lactic Acid for Sepsis Collection DT: MonDec 06, 2016 22:26, Lactic Acid - Sepsis 1.4 mmol/L, Range (0.5-2.2). (23:09 [facility]) CBC with Differential Collection DT: MonDec 06, 2016 22:26, *White Blood Cell (WBC) Count 12.5 - H thou/uL, Range (4.8-10.8), *Red Blood Cell (RBC) Count 3.38 - L mill/uL, Range (4.70-6.10), *Hemoglobin 11.6 - L g/dL, Range (14.0-18.0), *Hematocrit 35.8 - L %, Range (42.0-52.0), *Mean Corpuscular Volume 106.0 - H fl, Range (80.0-94.0), *Mean Corpuscular Hemoglobin 34.5 - H pg, Range (27.0-31.0), Mean Corpuscular HGB CONC 32.5 g/dL, Range (32.0-36.0), *RBC Distribution Width 15.1 - H %, Range (11.5-14.5), Platelet Count 370 thou/uL, Range (130-400), Mean Platelet Volume 7.7 fL, Range (7.4-10.4). (23:09 [facility]) Urinalysis with Microscopic Collection DT: MonDec 06, 2016 21:59, Color Yellow , Range (Yellow), Clarity Clear , Range (Clear), &a-1R&a+25V*p+0X*t5212V*c202B*c15G*c2P*p-0X&a-25V&a+1R Name: Jose Raul Correa : 1980 5 MedRec: [id number] AcctNum: [id number] Prepared: MonDec 07, 2016 09:03 by Interface Page 11 of 12 pMD [facility] EMERGENCY RECORD Specific [place], Urine 1.015 , Range (1.005-1.030), pH, Urine 6.5 , Range (5.0-9.0), Leukocyte Negative , Range (Negative), Nitrite Negative , Range (Negative), Protein, Urine (Dipstick) Negative mg/dL, Range (Neg-Trace), Glucose, Urine (Dipstick) Negative mg/dL, Range (Negative), Ketone, Urine Negative mg/dL, Range (Negative), Urobilinogen 1.0 mg/dL, Range (0.2-1.0), Bilirubin Negative , Range (Negative), *Blood, Urine Trace - H , Range (Negative), RBC/HPF None Seen HPF, Range (0-3), WBC/HPF 0-3 HPF, Range (0-3), Squamous Epithelial 0-3 HPF, Range (0-3). (23:09 [facility]) Kelly: SARA=ARRON Solano, Rukhsana INTERIANO=MD January, Matthieu &a-1R&a+25V*p+0X*w0416G*c202B*c15G*c2P*p-0X&a-25V&a+1R Name: Jose Raul Correa : 1980 5 MedRec: [id number] AcctNum: [id number] Prepared: MonDec 07, 2016 09:03 by Interface Page 12 of 12 pMD MTDD
== END 2016-12-06 23:18 | disposition home or self-care (01) ==
LOC: BURERS 20:38
DX: J06.9 Acute upper respiratory infection, unspecified (principal)
CPT/HCPCS: 71020; 80053; 81001; 82553; 83605; 83690; 84484; 85025; 93005